=== PATIENT | male | born 1970 | race African-American/Black ===

== ENCOUNTER 2021-04-03 18:42 | Emergency (ER) | payer OTHER ==
[2021-04-03 19:06] VITALS: BMI 26.8
[2021-04-03] MEDS ORDERED: ACETAMINOPHEN 325 MG TABLET (FP) PO ONE (20:11)
[2021-04-03] MEDS ORDERED: ACETAMINOPHEN 325 MG TABLET (FP) ONE (20:29)
[2021-04-03] MEDS ORDERED: CYCLOBENZAPRINE HCL 10 MG TABLET (FP) PO ONE (21:27)
[2021-04-03] MEDS ORDERED: CYCLOBENZAPRINE HCL 10 MG TABLET (FP) ONE (21:42)
[2021-04-03] MEDS ORDERED: KETOROLAC TROMETHAMINE 30 MG/1 ML VIAL IM ONE (22:37)
[2021-04-03] MEDS ORDERED: KETOROLAC TROMETHAMINE 30 MG/1 ML VIAL ONE (23:00)
[2021-04-03 23:19] VITALS: BP 149/97; PULSE 59; TEMP 98
[2021-04-04] MEDS ORDERED: CYCLOBENZAPRINE HCL 5 MG TABLET PO ONE ×2 (20:11)
== END 2021-04-03 23:59 | disposition home or self-care (01) ==
LOC: JER 18:42
PROC: 3E023GC Introduction of Other Therapeutic Substance into Muscle, Percutaneous Approach (ICD-10-PCS; principal; 2021-04-03)
DX: S13.4XXA Sprain of ligaments of cervical spine, initial encounter (principal); M54.5 Low back pain; V49.50XA Passenger injured in collision with unspecified motor vehicles in traffic accident, initial encounter
CPT/HCPCS: 70450-TC; 72125-TC; 72131-TC; 73564-TC-RT-FY; 99284-25

== ENCOUNTER 2022-02-23 11:09 | Emergency (ER) | payer OTHER ==
[2022-02-23 11:39] VITALS: BP 124/82; PULSE 86; RESP 18; TEMP 98.2; BMI 30.7
[2022-02-23 14:02] LABS: BASO % 0.9 % (0-2.0); EOS % 3.2 % (0-4.5); HEMATOCRIT 48.6 % (35.4-49); HEMOGLOBIN 15.2 GM/dL (11.7-16.9); MCH 22.1 pg (25.7-33.7); MCHC 31.3 g/dl (32.0-35.9); MEAN CELL VOLUME 70.5 fl (80-96); MEAN PLT VOLUME 8.3 fl (7.5-11.1); NEUT % 53.9 % (42.8-82.8); PLATELET COUNT 204 10^3/uL (134-434); RBC 6.89 M/mm3 (4.00-5.60); RDW 15.7 % (11.9-15.9); WHITE BLOOD COUNT 4.8 K/mm3 (4.0-10.0)
[2022-02-23 14:18] LABS: CALCIUM 9.8 mg/dL (8.5-10.1)
[2022-02-23 14:19] LABS: BLOOD UREA NITROGEN 10.6 mg/dL (7-18)
[2022-02-23 14:22] LABS: CREATININE 1.3 mg/dL (0.55-1.3)
[2022-02-23 14:23] LABS: TOT PROT 7.5 g/dl (6.4-8.2)
[2022-02-23 14:24] LABS: BILIRUBIN,TOTAL 0.4 mg/dL (0.2-1)
== END 2022-02-23 15:18 | disposition home or self-care (01) ==
LOC: JERFT 11:09
DX: K52.9 Noninfective gastroenteritis and colitis, unspecified (principal)
CPT/HCPCS: 36415; 80053; 85025; 99283-25; C9803-CS; U0003; U0005

== ENCOUNTER 2022-07-09 02:42 | Emergency (ER) | payer OTHER ==
[2022-07-09 03:12] VITALS: BP 163/91; PULSE 102; RESP 20; TEMP 98.5; BMI 32.3
[2022-07-09] MEDS ORDERED: ACETAMINOPHEN 325 MG TABLET (FP) PO ONE (05:37)
[2022-07-09] MEDS ORDERED: ACETAMINOPHEN 325 MG TABLET (FP) ONE (05:42)
== END 2022-07-09 05:46 | disposition home or self-care (01) ==
LOC: JER 02:42
PROC: 0CQ0XZZ Repair Upper Lip, External Approach (ICD-10-PCS; principal; 2022-07-09)
DX: S01.511A Laceration without foreign body of lip, initial encounter (principal); W01.198A Fall on same level from slipping, tripping and stumbling with subsequent striking against other object, initial encounter
CPT/HCPCS: 99283-25

== ENCOUNTER 2022-07-14 18:25 | Emergency (ER) | payer OTHER ==
[2022-07-14 18:58] VITALS: BP 165/96; PULSE 83; RESP 18; TEMP 98.1; BMI 32.3
== END 2022-07-14 20:23 | disposition home or self-care (01) ==
LOC: JER 18:25 → JERFT 18:25
DX: S01.511A Laceration without foreign body of lip, initial encounter (principal); Y99.9 Unspecified external cause status; Z48.02 Encounter for removal of sutures
CPT/HCPCS: 99281-25